=== PATIENT | female | born 1965 | race Caucasian/White ===

== ENCOUNTER 2025-08-25 08:54 | Outpatient (AMB) | payer MEDICARE, MEDICAID, SELFPAY ==
[2025-08-25 08:59] VITALS: BMI 29.0
--- NOTE | 2025-08-25 08:59 | A.PHYSOV_ITS ---
Vital Signs 08/25/25 08:59 Height 5 ft 7 in Weight 185 lb BMI 29.0 Intake Visit Reasons: 3M FUV Intake Note: Patient is a 59 year old female in office today for her 3 month follow up. Today we may consider ordering another injection if needed. Allergies codeine Allergy (Unknown, Verified 08/25/25 08:58) Unknown tramadol Allergy (Unknown, Verified 08/25/25 08:58) Unknown HPI Comments Details: History of Present Illness The patient is a 59-year-old female presenting with left-sided mid thoracic pain. She previously received a left transforaminal injection on June 01, 2025, which provided 80% pain relief by the follow-up visit on June 24, 2025. The patient occasionally uses Percocet for severe pain and has been taking cyclobenzaprine. The patient also reports a history of fibromyalgia, which she describes as generalized pain affecting her entire body. She has tried various medications, including Cymbalta, Lyrica, and gabapentin, but did not continue them long enough to assess their full efficacy. Currently, she is on sertraline and has been prescribed Celebrex by her primary care physician, although she feels it is not effective. The patient experiences morning stiffness, which she attributes to a combination of fibromyalgia and arthritis. She reports that the stiffness improves as the day progresses. I reviewed our previous office notes and also her primary care notes. Pain Description - Onset and Timing: Persistent dull pain in the left mid thoracic region, sometimes becoming relentless. - Quality and Character: Described as dull and persistent, with episodes of increased severity. - Location: Left mid thoracic region. - Exacerbating Factors: Morning stiffness, possibly due to fibromyalgia and arthritis. - Relieving Factors: Previous transforaminal injection provided significant relief. Results - Imaging: Thoracic spine MRI dated January 19, 2023, showed tiny disc protrusions at T1-T3 and T3-T4 levels without neurofibromyal compromise. [facility] Medical History (Updated 08/25/25 @ 09:25 by Tahir Leon DO) Thoracic spine pain Polyarthritis Chronic pain syndrome Fibromyalgia Surgical History History of tubal ligation (Unknown) History of hip replacement (Unknown) History of hernia repair (Unknown) History of cholecystectomy (Unknown) Social History Household Members: Spouse Alcohol intake: current Alcohol intake frequency: holidays/special occasions only Patient Tobacco Use Status: Never used Tobacco Current occupational status: retired Review of Systems Narrative Review of Systems - Musculoskeletal: Reports persistent dull pain in the left mid thoracic region, morning stiffness. - Neurological: Denies any new neurological symptoms. - General: Reports generalized pain due to fibromyalgia. Denies change in bowel bladder habits, denies fever or chills, denies uncontrolled depression or suicidal ideation Physical Exam Exam Exam: Physical Exam Patient appears to be in no acute distress, appropriately conversant and oriented. She was able to ambulate without antalgia. She was able to perform heel walk and toe walk with support for balance. Pain with palpation over thoracic paraspinal muscles on the left side at about T6 through T8 levels. Pain is aggravated by flexion and extension. Patient demonstrated no upper motor neuron signs. Neurological examination was nonfocal. Vital Signs: BMI result Body Mass Index 29.0 Assessment & Plan Assessment & Plan (1) Fibromyalgia: Code(s): M79.7 - Fibromyalgia Category: Medical (2) Chronic pain syndrome: Code(s): G89.4 - Chronic pain syndrome Category: Medical (3) Polyarthritis: Code(s): M13.0 - Polyarthritis, unspecified Category: Medical (4) Thoracic spine pain: Code(s): M54.6 - Pain in thoracic spine Category: Medical (5) Fibromyalgia: Code(s): M79.7 - Fibromyalgia Category: Medical Plan Pain Management - Affect: Pain impacts daily activities, causing morning stiffness and difficulty in movement. - Analgesia: Uses Percocet occasionally for severe pain; previously received transforaminal injection with 80% relief. - Adverse Effects: Reports Celebrex is ineffective and causes stomach discomfort. - Activities of Daily Living: Morning stiffness affects mobility, but improves throughout the day. - Aberrant Drug Related Behaviors: No evidence of misuse; patient uses medication as needed. Plan Patient was informed and verbally consented to the use of an ambient scribe for clinic note documentation during this visit. 1. Left-Sided Mid Thoracic Pain The patient will continue with pain management strategies, including the use of Percocet as needed for severe pain. A follow-up appointment is scheduled in one month to assess the effectiveness of the current pain management plan. 2. Fibromyalgia The patient will start pregabalin at 75 mg twice daily, with a follow-up in one month to evaluate tolerance and effectiveness. The patient is advised to discontinue Celebrex due to lack of efficacy and discuss this with her primary care physician. A refill of oxycodone is provided for breakthrough pain management. Discussion Notes I discussed with the patient the management of her fibromyalgia, including starting pregabalin at 75 mg twice daily and discontinuing Celebrex due to its ineffectiveness. We also talked about the importance of a follow-up in one month to evaluate the effectiveness of the new medication regimen. The patient was informed about the refill of oxycodone for breakthrough pain and the possibility of future injections if needed. Patient Instructions - Start pregabalin 75 mg twice daily. - Discontinue Celebrex and discuss with your primary care physician. - Use Percocet as needed for severe pain. - Schedule a follow-up appointment in one month. - Consider future injections if pain persists. Medications: New oxycodone-acetaminophen 5-325 mg 1 tab PO QID PRN 28 tabs 0RF pain G89.4 - Chronic pain syndrome, M13.0 - Polyarthritis, unspecified, M54.6 - Pain in thoracic spine, M79.7 - Fibromyalgia pregabalin 75 mg PO BID 60 caps 0RF fibromyalgia M79.7 - Fibromyalgia Coding Level of Care Code Tele Est Pt Level 4 (64806) Complex EM visit Add On G2211 Diagnoses Fibromyalgia M79.7 Chronic pain syndrome G89.4 Polyarthritis M13.0 Thoracic spine pain M54.6
--- OUTSIDE RECORDS SUMMARY | 2025-08-25 18:25 | XMS_ITS | Encounter Summary ---
Author Organization [facility] Address [address] [place] [address] Care Team Providers Care Corporate Treasury Analyst Name Role Phone Jodie Yip MD Primary Care Provider + [phone] Encounter Details Date Type Department Care Team (Late Contact Info) Description 08/20/2024 Lab Requisition [facility] [address] [facility] [place] [id number] James Walters PA [address] [phone] Benign essential microscopic hematuria Social History Tobacco Use Types Packs/Day Years Used Date Smoking Tobacco: Never Smokeless Tobacco: Never Alcohol Use Standard Drinks/Week Comments Yes 0 (1 standard drink = 0.6 oz pur e alcohol) Comments Unknown Sex and Gender Information Value Date Recorded Sex Assigned at Female 11/04/2024 8:29 AM EST Legal Sex Female 12:37 PM EST Gender Identity Female 11/04/2024 8:29 AM EST Sexual Orientation Straight 11/04/2024 8: 29 AM EST documented as of this encounter Plan of Treatment Upcoming Encounters Date Type Department Care Team (Late Contact Info) Description 09/07/2025 9:30 AM EST Office Visit Bariatric Surgery - [place] [address] [facility] [address] [place] [phone] Shana Campbell MD [address] [place] [phone] documented as of this encounter Procedures Procedure Name Priority Date/Time Associated Diagnosis Comments AP OUTSIDE CONSULT Routine 08/15/2024 12 :00 AM EST Benign essential microscopic hematuria documented in this encounter Results * Anatomic pathology outside consult (08/15/2024 12:00 AM EST) Final Diagnosis Urine, Voided ([id number]): Negative for high grade urothelial carcinoma. 09/03/2024 3:55 PM EST [facility] Gross Description A. Urine, Voided, : [id number] Received 1 TP (CYTO) with Reflex Fish if Atypical/Susp 09/03/2024 3:55 PM EST [facility] Disclaimer Unless otherwise specified, all tissue is 10% NB formalin fixed and paraffin embedded. 09/03/2024 3:55 PM EST [facility] Tissue Urine specimen from urethra / Unknown 08/15/2024 08/20/2024 11:04 AM EST us [facility] ORDERAB LES Final Result [facility] [address] [place] [address], documented in this encounter Visit Diagnoses Diagnosis Benign essential microscopic hematuria documented in this encounter Care Teams Corporate Treasury Analyst Relationship Specialty Start Date End Date Jodie Yip MD [address] [place] [id number] PCP - General Internal Medicine 11/04/24 documented as of this encounter
--- OUTSIDE RECORDS SUMMARY | 2025-08-25 18:25 | XMS_ITS | Clinical Summary ---
Author Organization [address] Address [address] [place] [address] Phone Care Team Providers Care Security Inspector Name Role Phone Jodie Yip MD Primary Care Provider + [phone] Allergies Active Allergy Reactions Criticality Noted Date Comments Codeine Nausea And Vomiting 07/11/2005 codeine causes abdominal pain ultram causes nauea & vomiting Tramadol Nausea And Vomiting 01/12/2021 Tramadol Hcl Nausea And Vomiting 09/07/2009 Medications famotidine (PEPCID) 40 mg tablet Take 1 tablet (40 mg total) by mouth 1 (one) time each day. 3 Active aspirin 81 mg EC tablet Take by mouth. Activ e meclizine (ANTIVERT) 25 mg tablet Take 1 Tablet by mouth 3 times daily as needed for Other (dizziness). 3 Active amLODIPine-benazep ril (LOTREL) 5-10 mg per capsule Take 1 capsule by mouth 1 (one) time each day. 3 Active ondansetron ODT (ZOFRAN-ODT) 4 mg disintegrating tablet Take 1 Tablet by mouth every 12 hours as needed for Nausea. 3 Active atorvastatin (LIPITOR) 40 mg tablet Take 1 tablet (40 mg total) by mouth 1 (one) time each day. 3 Active albuterol HFA (PROAIR HFA ; PROVENTIL HFA ; VENTOLIN HFA) 90 mcg/actuation inhaler Inhale 2 Puffs into the lungs every 4 hours as needed for Cough, Wheezing or Shortness of Breath. 3 Active cyclobenzaprine (FLEXERIL) 10 mg tablet Take 1 Tablet by mouth 3 times daily as needed for Muscle spasms (fibromyalgia) . 3 Active cycloSPORINE (Restasis MultiDose) 0.05 % drops Administer 1 drop into both eyes 2 (two) times a day. 3 Active sertraline (ZOLOFT) 100 mg tablet 2 po qd 1 Active LORazepam (ATIVAN) 0.5 mg tablet 1/2-1 po bid prn anxiety/insomn ia 1 Active hydrOXYzine HCL (ATARAX) 25 mg tablet Take 1-3 Tablets by mouth at bedtime as needed (insomnia). 1 Active loratadine (CLARITIN) 10 mg tablet Take 1 tablet (10 mg total) by mouth 1 (one) time each day. 0 Active acetaminophen/caff eine (EXCEDRIN TENSION HEADACHE ORAL) Take 1 Tab by mouth daily as needed. Active levothyroxine (SYNTHROID, LEVOTHROID) 100 mcg tablet Take 1 tablet (100 mcg total) by mouth 1 (one) time each day before breakfast. Active pantoprazole (PROTONIX) 40 mg EC tablet Take 1 tablet (40 mg total) by mouth 1 (one) time each day before breakfast. Do not crush, chew, or split. Active Active Problems Problem Noted Date Diagnosed Date Known medical problems 09/24/2024 Overview (09/24/2024): LAP BAND 07/01/07 + hiatal hernia repair; UGI 05/05/15 shows unchanged gastric pouch proximal to band with gastric cardia above diaphragm, & reflux Kidney stones, calcium oxalate 11/17/2022 Overview (09/24/2024): PVU Hyperlipidemia 09/12/2021 Overview (09/24/2024): Last Assessment & Plan: Labs are ordered to be done today. Discussed diet and exercise. We will continue to monitor. Primary hypertension 08/09/2021 Overview (09/24/2024): Last Assessment & Plan: Patient was last seen on August 09, 2021 and started on amlodipine-benazepril 5-10 mg daily. Here today and blood pressures under good control. Patient is tolerating medication well. Labs are ordered to be done today. Will continue to monitor blood pressures in office at next visit. Discussed dietary strategies to help control his blood pressure. Encouraged low-fat, lean protein, high-fiber, low-cholesterol, low carbohydrate diet. Regular exercise and weight loss also encouraged to help with blood pressure control. Recheck in 3 months. Return sooner if needed. Hyperthyroidism 02/09/2021 Overview (09/24/2024): Last Assessment & Plan: Patient currently on methimazole 15 mg daily. She has been tolerating the medicine well. Occasionally feeling some palpitations but otherwise feeling stable. Since getting her thyroid under better control her fibromyalgia is feeling better. Last TSH was 1.85 on July 25, 2021. We will continue to monitor. Vitamin D deficiency 11/26/2019 Overview (09/24/2024): Last Assessment & Plan: Patient finished her course of vitamin D 50,000 units weekly that was started on August 09, 2021. We will get lab work today. If continued decreased can consider either another course for 8 more weeks of the vitamin D 50,000 units or can do 2000 units daily depending on level. We will continue to monitor and adjust therapy as indicated. Adjustment disorder with mixed anxiety and depre ssed mood 10/22/2018 Mild episode of recurrent ma charan depressive disorder ([facility] V24) 10/22/2018 Nausea 12/05/2017 Inflammatory arthritis 12/05/2017 Overview (09/24/2024): 05/2017 - 11/2017 - methotrexate (hair loss & ineffective) Chronic headache disorder 04/28/2015 Overview (09/24/2024): Onset as teenager. Ureteral stone 01/05/2012 Rotator cuff tendinitis 11/16/2010 Overview (09/24/2024): Left; April 2010 mri shows AC DJD as well Osteoarthritis of hip 10/05/2010 Overview (09/24/2024): L>R with protrusio deformity Thoracic back pain 03/24/2010 ADD (attention deficit disorder) 02/23/2010 Fibromyalgia 03/21/2007 Overview (09/24/2024): LYNDA 1:80 - speckled. Anti DNA negative. Hand numbness but NCT 12/15 normal. IMO update Asthma 08/29/2006 Esophageal reflux 08/29/2006 Overview (09/24/2024): EGD 02/20/2012: grade B esophagitis on PPI rx. Encounters Date Type Department Care Team Description 08/12/2025 11:30 AM EST Office Visit Bariatric Surgery [address] [address] Shana Campbell MD Encounter for adjustment of gastric lap band (Primary Dx); Overweight (BMI 25.0-29.9) 07/20/2025 9:45 AM EDT Office Visit Bariatric [address] [address] Shana Campbell MD Encounter for adjustment of gastric lap band (Primary Dx); Overweight (BMI 25.0-29.9); Hyperthyroidism; Weight gain from Last 3 Months Immunizations Immunization Administration Dates Next Due Hepatitis B (Ljtehty-B-Arfam , Recombivax HB-Adult) 19yo and older 01/16/2018,07/18/2017,06/18/2017 Influenza Quadravalent, MDCK , 0.5ml, with preservative (Flucelvax) 6mo and older 06/25/2020,07/15/2019,07/10/2018,07/05 Influenza trivalent, 0.5mL, preservative free (Fluarix; FluLaval; Fluzone) ages 6mo and older (Afluria) 3 years and older 07/03/2016,08/01/2013,07/30/2012,07/07,06/28/2010,07/05/2009,07/28/2008 ,07/31/2007 Influenza, Unspecified 07/17/2022,06/29/2021,05/2019 Moderna SARS-CoV-2 COVID-19, mRNA, LNP-S, preservative free 09/07/2021 Pfizer SARS-CoV-2 COVID-19, mRNA, LNP-S, preservative free 07/17/2022 Pneumococcal polysaccharide 23 valent (Pneumovax 23) 2yo and older 06/18/2017 Td Tetanus diptheria (Tdvax) 7yo and older 07/21/2022 Td, Unspecified 07/14/2003 Tdap Tetanus diptheria acell ular pertussis (Boostrix; Adacel) 7yo and older 03/15/2012 Surgical History Surgery Date Site/Laterality Comments LAPAROSCOPIC GASTRIC BANDING 07/01/20 07 PROCEDURE: LAP ADJUSTABLE GASTRIC BAND; COMMENT: plus hiatal hernia repair APPENDECTOMY PROCEDURE: HISTORICAL APPENDECTOMY CHOLECYSTECTOMY PROCEDURE: HISTORICAL CHOLECYSTECTOMY ESOPHAGOGASTRODUODENOSCOPY 02/20/20 PROCEDURE: NV ESOPHAGOGASTRODUODENOSCOPY TRANSORAL DIAGNOSTIC; COMMENT: grade B reflux esophagitis. OTHER SURGICAL HISTORY , Bilateral PROCEDURE: GLOBAL ESWL KIDNEY LITHOTRIPSY 01/11/20 12 Left PROCEDURE: HISTORICAL LITHOTRIPSY; COMMENT: ureteroscopy,laser,stent UPPER GASTROINTESTINAL ENDOSCOPY 07/24/20 PROCEDURE: NV UPPER GI ENDOSCOPY PERFORMED; COMMENT: No esophagitis on pantoprazole 40 bid. COLONOSCOPY 09/11/20 16 PROCEDURE: HISTORICAL COLONOSCOPY; COMMENT: Normal screening examination. HIP ARTHROPLASTY 03/2012 Left PROCEDURE: HISTORICAL HIP REPLACEMENT; COMMENT: Dr Cleveland Wan OTHER SURGICAL HISTORY 02/23/20 PROCEDURE: ANESTH, UPPER GI ENDOSCOPIC PROCS; COMMENT: muslu -esophageal dilation, food in the esophagus Medical History Medical History Date Comments Lumbago 07/11/2005 DX:Lumbago Esophageal reflux 08/29/2006 DX:Esophageal reflux Allergic rhinitis, cause unspecified DX:Allergic rhinitis, cause unspecified Deviated nasal septum 02/06/2008 DX:Deviate d nasal septum Chronic maxillary sinusitis 02/06/2008 DX:C hronic maxillary sinusitis Bariatric surgery status 07/09/2007 DX:[facility] atric surgery status Depressive disorder, not els ewhere classified 03/21/2007 DX:Depressive disorder, not elsewhere classified Myalgia and myositis, unspecified 03/21/2007 DX:Myalgia and myositis, unspecified Primary localized osteoarthr osis, pelvic region and thigh 03/21/2007 DX:Primary localized osteoar throsis, pelvic region and thigh; COMMENT: needs left THR per Dr. Pereira Unspecified asthma(493.90) 08/29/2006 DX:Un specified asthma(493.90) Rotator cuff tendinitis 11/16/2010 DX:Rotat or cuff tendinitis Ureteral stone 01/05/2012 DX:Ureteral ston e Chronic headache disorder 04/28/2015 DX:Chr onic headache disorder; COMMENT: Onset as teenager. Family History Medical History Relation Name Comments Breast cancer Maternal Grandmother 40s Diabetes Maternal Grandmother 40s Diabetes Mother Other: trigger finger Mother Thyroid disease Mother Diabetes Paternal Grandmother Arthritis Uncle maternal rheumatoid Colon cancer Neg Hx Ovarian cancer Neg Hx Relation Name Status Comments Brother Alive James, 2yrs you nger, Diabetic Father Alive CHF, lung disea se (scale assembly set up worker) Maternal Grandmother 40s Mother Alive Diabetes, CAD Paternal Grandmother Uncle maternal Alive Social History Tobacco Use Types Packs/Day Years [...] Orientation Straight 11/04/2024 8: 29 AM EST Obstetrics History Last Filed Vital Signs Vital Sign Reading Time Taken Comments Blood Pressure 158/96 08/12/2025 11:29 AM EST Pt is nervous Pulse 79 08/12/2025 11:29 AM EST Temperature 36.6 C (97.9 F) 08/12/2025 11:29 AM EST Respiratory Rate 18 11/04/2024 10:5 0 AM EST Oxygen Saturation 98% 11/04/2024 11: 23 AM EST Inhaled Oxygen Concentration - - Weight 84.8 kg (187 lb) 08/12/2025 11:2 9 AM EST Height 170.2 cm (5' 7 ) 08/12/2025 11:2 9 AM EST Body Mass Index 29.29 08/12/2025 11:29 AM EST Plan of Treatment Upcoming Encounters Date Type Department Care Team (Late st Contact Info) Description 09/07/2025 9:30 AM EST Office Visit Bariatric Surgery - [place] [address] [place] [address] Shana Campbell MD [facility] [place] [address] Health Maintenance Due Date Last Done Comments RSV Immunization Adult Patients (1 - Risk 50-74 years 1-dose series) 2015 Pneumococcal Vaccine: 50+ Years (2 of 2 - PCV) 06/18/2018 06/18/2017 HIV Screening 09/16/2022 Medicare Annual Wellness Visit 09/16/2022 Social Influencers of Health Screening 09/16/2022 Hypertension/CHF/CAD Annual BMP Blood Test 12/22/2023 12/21/2022, 01/17/2021 Depression Screening 10/08/2024 COVID-19 Vaccine ( season) 2025 07/11/2024, 07/17/2022, 09/07/2021, Additional history exists Influenza Vaccine (#1) 2025 , 07/17/2022, 06/29/2021, Additional history exists Breast Cancer Screening 08/08/2025 08/08/20 23, 08/03/2022, 07/11/2019, Additional history exists Colorectal Cancer Screening: Colonoscopy 09/11/2026 09/11/2016 Cholesterol Screening (Lipid Panel) 12/12/2026 12/12/2021 Cervical Cancer Screening: HPV 10/16/2027 10/16/2022 DTaP,Tdap,and Td Vaccines (4 - Td or Tdap) 07/21/2032 07/21/2022, 03/15/2012, 07/14/2003 Hepatitis C Screening Completed 06/05/2017 Hepatitis B Vaccines Completed 01/16/2018, 07/18/2017, 06/18/2017 Zoster Vaccines Completed 07/11/2024, 01/31/2024 HIB Vaccines Aged Out No longer eligi ble based on patient's age to complete this topic HPV Vaccines Aged Out No longer eligi ble based on patient's age to complete this topic Hepatitis A Vaccines Aged Out No long er eligible based on patient's age to complete this topic IPV Vaccines Aged Out No longer eligi ble based on patient's age to complete this topic MMR Vaccines Aged Out No longer eligi ble based on patient's age to complete this topic Meningococcal ACWY Vaccine Aged Out N o longer eligible based on patient's age to complete this topic Meningococcal B Vaccine Aged Out No l onger eligible based on patient's age to complete this topic RSV Immunization Patients Under 20 months Aged Out No longer eligible based on patient's age to complete this topic Varicella Vaccines Aged Out No longer eligible based on patient's age to complete this topic Procedures Procedure Name Priority Date/Time Associated Diagnosis Comments SCREENING MAMMOGRAPHY BI 2-VIEW BREAST INC CAD Routine 08/08/2023 6:10 PM EDT Encounter for screening mammogram for malignant neoplasm of breast ANNUAL BMP BLOOD TEST Routine 12/21/2022 HPV Routine 10/16/2022 LIPID PANEL Routine 12/12/2021 HEPATITIS C SCREENING Routine 06/05/2017 COLONOSCOPY Routine 09/11/2016 from Last 3 Months or Most Recently Relevant to Health Maintenance Results * SCREENING MAMMOGRAPHY BI 2-VIEW BREAST INC CAD (08/08/2023 6:10 PM EDT) Anatomical Region Laterality Modality Radiographic Teri ging 08/03/2022 5:51 PM EDT Narrative 08/09/2023 12:05 PM EDT This is a summary report. The complete report is available in the patient's medical record. If you cannot access the medical record, please contact the sending organization for a detailed fax or copy. Full field digital screening tomosynthesis mammography, reviewed with CAD and compared to previous. The breasts are composed of fatty and fibroglandular tissue. No suspicious mass, architectural distortion or suspicious calcifications are identified. IMPRESSION: : No mammographic evidence of malignancy. BIRADS 1-Negative; N. 5 year breast cancer risk assessment 1.0 % Lifetime breast cancer risk assessment 6.5 % Breast cancer risk category Low (<15%) Procedure Note Shefali Avendano MD - 11/13/2023 This is a summary report. The complete report is available in thepatient's medical record. If you cannot access the medical record, pleasecontact the sending organization for a detailed fax or copy. Full field digital screening tomosynthesis mammography, reviewed with CADand compared to previous. The breasts are composed of fatty andfibroglandular tissue. No suspicious mass, architectural distortion orsuspicious calcifications are identified. IMPRESSION: : No mammographic evidence of malignancy. BIRADS 1-Negative; N. 5 year breast cancer risk assessment 1.0 % Lifetime breast cancer risk assessment 6.5 % Breast cancer risk category Low (<15%) Result [facility] Jodie Yip MD IMG XR PROCEDURES Final Resu lt * Annual BMP Blood Test (12/21/2022) [facility] Annual BMP Blood Test abstracted Result [facility] Provider [facility] MAINTENANCE Final Result * Cervical Cancer Screening: HPV (10/16/2022) [facility] Cervical Cancer Screening: HPV abstracted, negative Result [facility] Final Result * (ABNORMAL) Lipid panel (12/12/2021) [facility] LDL/HDL Ratio 4 0 - 4 Triglycerides 106 0 - 150 mg/dL Cholesterol 238(A) 0 - 200 mg/dL HDL 69 >=40 mg/dL LDL Cholesterol 148(A) 0 - 100 mg/dL Blood Venous blood specimen / Unknown Result [facility] Provider LAB BLOOD ORDERABLES Juliana l Result * Hepatitis C Screening (06/05/2017) [facility] Hepatitis C Screening abstracted Result [facility]INTENANCE Final Result * Colonoscopy (09/11/2016) [facility] Colonoscopy abstracted, no interpretation Anatomical Region Laterality Modality Other us Historical Provider HEALTH MAINTENANCE Final Result from Last 3 Months or Most Recently Relevant to Health Maintenance Insurance MEDICARE MEDICAID - [place] Care Teams Security Inspector Relationship Specialty Start Date End Date Jodie Yip MD [address] [place] [phone] PCP - General Internal Medicine 11/04/24
--- OUTSIDE RECORDS SUMMARY | 2025-08-25 18:25 | XMS_ITS ---
Author Name [facility] Organization Unknown Care Team Organization Name Specialty Phone Email Start Date End Da te [facility] YANY ANDERS Primary Care 06/14/2023 05/26/2024 [facility] Termed, PROVIDER Primary Care 02/12/202305/08 [facility] Jose Carlos Kramer Primary Care 08/15/20222023
--- OUTSIDE RECORDS SUMMARY | 2025-08-25 18:25 | XMS_ITS | Clinical Summary ---
Author Organization [facility] Address [address] [address] Phone Care Team Providers Care Online [employer] And Fitness Coach Name Role Phone Shefali Dutton Primary Care Provider [phone] Allergies Active Allergy Reactions Criticality Noted Date Comments Codeine Nausea and/or Vomiting,Pain Low 01/13/20 21 Tramadol Nausea and/or Vomiting 01/12/2021 Medications sertraline (ZOLOFT) 100 MG tablet Take 200 mg by mouth daily. Active LORazepam (ATIVAN) 0.5 MG tablet Take by mouth. 1/2-1 tab po twice a day as needed for anxiety Active sucralfate (CARAFATE) 100 mg/mL suspension Take 1 g by mouth 4 (four) times a day. Active loratadine (CLARITIN) 10 mg tablet Take 10 mg by mouth daily. Active pantoprazole (PROTONIX) 40 MG tablet Take 40 mg by mouth daily. Active cyclobenzaprine (FLEXERIL) 10 MG tablet Take 10 mg by mouth 3 (three) times a day as needed. Active albuterol 90 mcg/actuation inhaler Inhale 2 puffs into the lungs every 4 (four) hours as needed. Active hydrOXYzine (ATARAX) 25 MG tablet Take by mouth. 1-3 tabs at bedtime as needed Active acetaminophen/c affeine (EXCEDRIN TENSION HEADACHE ORAL) Take by mouth. Active fluticasone propionate (FLOVENT HFA) 220 mcg/actuation inhaler Inhale 2 puffs into the lungs as needed. Active methIMAzole (TAPAZOLE) 10 MG tablet Take 10 mg by mouth daily. 06/13/2021 Active methIMAzole (TAPAZOLE) 5 MG tablet Take 5 mg by mouth daily. 06/15/2021 Active amLODIPine-maral zepril (LOTREL 5-10) 5-10 mg per capsule TOME JOSE C PSULA TODOS LOS D EN LA NOCHE 12/31/2021 Active atorvastatin (LIPITOR) 40 MG tablet Take 40 mg by mouth daily. 12/09/2021 Active celecoxib (CELEBREX) 100 MG capsule TAKE 1 CAPSULE BY MOUTH TWICE A DAY 60 capsule 2 04/20/2022 Active Active Problems Problem Noted Date Diagnosed Date Primary osteoarthritis of both hands 02/10/2021 Assessment & Plan (02/11/2021 4:26 PM EDT): Continue Celebrex 100 mg Take one pill PO BID with food for OA hip pain relief. Tylenol Arthritis for additional hip relief as needed Pain in both hands 01/13/2021 Assessment & Plan (01/13/2021 2:55 PM EDT): Cally has recently started Celebrex 100 mg PO BID with food. Continue current medication. Will get autoimmune labs for origin of hand pain. X-ray of hands. Vitamin D deficiency 01/13/2021 Assessment & Plan (02/11/2021 4:27 PM EDT): Patient on Vitamin D 43510 IU q week. She has one more week left on medication. Lab was normal. She will discuss maintenance dose with PCP:. Assessment & Plan (01/13/2021 2:54 PM EDT): Analy is on Vitamin D 85365 units a week. She has been taking for 3 weeks. Will get lab to check level. She is following with PCP for monitoring and therapy. Primary osteoarthritis of right hip 01/13/2021 Assessment & Plan (02/11/2021 4:26 PM EDT): Continue Celebrex 100 mg Take one pill PO BID with food for OA hip pain relief. Tylenol Arthritis for additional hip relief as needed. Assessment & Plan (01/13/2021 2:56 PM EDT): Continue Celebrex 100 mg Take one pill PO BID with food. Pain in both feet 01/13/2021 Assessment & Plan (02/11/2021 4:26 PM EDT): Continue Celebrex 100 mg Take one pill PO BID with food for OA hip pain relief. Tylenol Arthritis for additional hip relief as needed Assessment & Plan (01/13/2021 2:57 PM EDT): Patient will continue Celebrex 100 mg Take one pill PO BID with food for foot pain relief. Family History Medical History Relation Comments Breast cancer Maternal Grandmother Diabetes Maternal Grandmother Diabetes Mother Diabetes Paternal Grandmother Rheumatoid arthritis Unspecified Relation Status Comments Maternal Grandmother Mother Paternal Grandmother Unspecified Social History Tobacco Use Types Packs/Day Years Used Date Smoking Tobacco: Never Smokeless Tobacco: Never Education Answer Date Recorded Are you interested in more education? Not on charo e 02/02/2023 Are you concerned about learning? Not on file 02/02/2023 No 02/02/2023 No 02/02/2023 Digital Access Answer Date Recorded No 03/06/2023 No 03/06/2023 Reliable internet access at home? Not on file 03/06/2023 Device with a working camera? Not on file Comments Unknown Sex and Gender Information Value Date Recorded Sex Assigned at Not on file Legal Sex Female 1:53 PM EDT Gender Identity Not on file Sexual Orientation Not on file Last Filed Vital Signs Vital Sign Reading Time Taken Comments Blood Pressure 110/66 01/25/2022 8:24 AM EDT Pulse 78 01/25/2022 8:24 AM EDT Temperature - - Respiratory Rate 16 01/25/2022 8:24 AM EDT Oxygen Saturation 98% 01/25/2022 8:24 AM EDT Inhaled Oxygen Concentration - - Weight 63 kg (139 lb) 01/25/2022 8:24 AM EDT Height 170.2 cm (5' 7.01 ) 01/25/2022 8:24 AM ED T Body Mass Index 21.77 01/25/2022 8:24 AM EDT Plan of Treatment Health Maintenance Due Date Last Done Comments LIPID PANEL 1965 DEPRESSION SCREENING 1977 HEPATITIS C SCREENING 1983 HIV ONE-TIME SCREENING (18-65 YEARS) 1983 PAP SMEAR 1986 MAMMOGRAM 2005 COLOGUARD 2010 COLONOSCOPY 2010 COLORECTAL CANCER SCREENING 2010 FIT TEST 2010 FOBT 2010 SIGMOIDOSCOPY 2010 VIRTUAL COLONOSCOPY 2010 ZOSTER VACCINES (1 of 2) 2015 PNEUMOCOCCAL VACCINES (50+ years) (2 of 2 - PCV) 06/18/2018 06/18/2017 CREATININE LEVEL 01/17/2022 01/17/2021 POTASSIUM LEVEL 01/17/2022 01/17/2021 Adult Td,Tdap Booster 03/15/2022 03/15/2012, 003 INFLUENZA VACCINE (#1) 2025 , 06/25/2020, 07/15/2019, Additional history exists COVID-19 VACCINE (4 - 2024- season) 2025 09/07/2021, 01/05/2021, 12/08/2020 RSV VACCINE (1 - 1-dose 75+ series) 2040 SMOKING STATUS SCREENING (Once After 26 Yrs) Completed 07/04/2021 HEPATITIS A VACCINES Aged Out No long er eligible based on patient's age to complete this topic HIB VACCINES Aged Out No longer eligi ble based on patient's age to complete this topic IPV VACCINES Aged Out No longer eligi ble based on patient's age to complete this topic MENINGOCOCCAL VACCINES (ACWY) Aged Out No longer eligible based on patient's age to complete this topic MENINGOCOCCAL VACCINES (B) Aged Out N o longer eligible based on patient's age to complete this topic Medical Devices Not on file Procedures Procedure Name Priority Date/Time Associated Diagnosis Comments COMPREHENSIVE METABOLIC PANEL (CMP) Routine 01/17/2021 10:45 AM EDT Pain in both hands Vitamin D deficiency Primary osteoarthritis of right hip from Last 3 Months or Most Recently Relevant to Health Maintenance Results * Comprehensive metabolic panel (01/17/2021 10:45 AM EDT) SODIUM 143 133 - 146 mmol/L [facility] POTASSIUM 4.4 3.3 - 5.1 mmol/L [facility] CHLORIDE 106 96 - 108 mmol/L [facility] CO2 28 21 - 35 mmol/L [facility] BUN 14 6 - 19 mg/dL [facility] CREATININE 0.60 0.5 - 1.5 mg/dL [facility] GLUCOSE 99 70 - 99 mg/dL [facility] ALBUMIN 4.4 3.9 - 4.8 g/dL [facility] TOTAL PROTEIN 7.5 6.5 - 8.0 g/dL [facility] CALCIUM 9.4 8.4 - 10.3 mg/dL [facility] ALKALINE PHOSPHATASE 78 39 - 117 U/L [facility] TOTAL BILIRUBIN 0.3 0.0 - 1.2 mg/dL [facility] AST 19 0 - 37 U/L [facility] ALT 19 0 - 40 U/L [facility] GLOBULIN 3.1 1 - 4.8 g/dL [facility] EGFR 103 >59 mL/min/1.7 3m2 [facility] Comment:Estimated glomerular filtration rate calculated using the CKD-EPI equation. ANION GAP 13 10 - 20 mmol/L [facility] Blood 01/17/2021 10:4 5 AM EDT 01/17/2021 10:53 AM EDT Alex [facility]O LAB BLOOD BKR ORDERABLE S Final Result [address] [id number] from Last 3 Months or Most Recently Relevant to Health Maintenance Insurance MEDICARE PART A & B [employer] NET PARTIAL MEDEX SUPPLEMENT MEDICARE PART A & B [employer] NET PARTIAL [employer] MEDEX SUPPLEMENT MEDICARE PART A & B [facility] NET PARTIAL [employer] MEDEX SUPPLEMENT MEDICARE PART A & B [facility] PARTIAL MEDEX SUPPLEMENT MEDICARE PART A & B [employer] NET PARTIAL MEDEX SUPPLEMENT MEDICARE PART A & B [employer] NET PARTIAL [employer] CROSS MEDEX SUPPLEMENT MEDICARE PART A & B [facility] NET PARTIAL [employer] MEDEX SUPPLEMENT MEDICARE PART A & B Member Subscriber Plan / Payer (Ef fective 2012-Present) Name:Estee Ledbetter Member ID:[id number] Relation to Subscriber:Self Name:Estee Ledbetter Subscriber ID:[id number] Payer ID:[id number] Group ID:Not on file Type:Medicare Address: [facility] [employer] [facility] [address] [address] [facility] PARTIAL MEDEX SUPPLEMENT MEDICARE PART A & B HEALTH SAFETY NET PARTIAL MEDEX SUPPLEMENT Care Teams Online Health And Fitness Coach Relationship Specialty Start Date End Date Shefali Dutton PA PCP - General Unknown Provider Specialty 01/06/21 Additional Source Comments The information contained in this document represents components of the legal health record. It is not the complete legal health record.[facility]
== END 2025-08-25 09:23 | disposition home or self-care (01) ==
PROVIDERS: PCP Internal Medicine; Visit Provider Physical Medicine & Rehabilitation
DX: M79.7 Fibromyalgia (principal); G89.4 Chronic pain syndrome; M13.0 Polyarthritis, unspecified; M54.6 Pain in thoracic spine
CPT/HCPCS: 99214; G2211

== ENCOUNTER → 2025-08-25 08:54 | Outpatient (BNVA) | payer MEDICARE, MEDICAID, SELFPAY | PROVIDERS: PCP Internal Medicine; Visit Provider Physical Medicine & Rehabilitation | DX: M54.6 Pain in thoracic spine (principal); M79.7 Fibromyalgia; G89.29 Other chronic pain; M13.0 Polyarthritis, unspecified | CPT/HCPCS: 99212 ==

== ENCOUNTER 2025-09-24 09:05 | Outpatient (AMB) | payer MEDICARE, MEDICAID, SELFPAY ==
[2025-09-24 09:13] VITALS: BMI 29.0
--- NOTE | 2025-09-24 09:13 | A.PHYSOV ---
Vital Signs 09/24/25 09:13 Height 5 ft 7 in Weight 185 lb BMI 29.0 Intake Visit Reasons: 1M followup Intake Note: Patient is a 59 year old female in office today for a 1 month follow up visit. Allergies codeine Allergy (Unknown, Verified 09/24/25 09:12) Unknown tramadol Allergy (Unknown, Verified 09/24/25 09:12) Unknown HPI Comments Details: History of Present Illness The patient is a 59-year-old female presenting with left-sided mid thoracic pain. She previously received a left transforaminal injection on June 01, 2025, which provided 80% pain relief by the follow-up visit on June 24, 2025. The patient occasionally uses Percocet for severe pain and has been taking cyclobenzaprine. The patient also reports a history of fibromyalgia, which she describes as generalized pain affecting her entire body. She has tried various medications, including Cymbalta, Lyrica, and gabapentin, but did not continue them long enough to assess their full efficacy. Currently, she is on sertraline and has been prescribed Celebrex by her primary care physician, although she feels it is not effective. The patient experiences morning stiffness, which she attributes to a combination of fibromyalgia and arthritis. She reports that the stiffness improves as the day progresses. During her last appointment she was started on pregabalin 75 mg twice a day. She reports no side effects. She thinks that she is feeling better on the medication. Pain continues to be significant at times. Pain Description - Onset and Timing: Persistent dull pain in the left mid thoracic region, sometimes becoming relentless. - Quality and Character: Described as dull and persistent, with episodes of increased severity. - Location: Left mid thoracic region. - Exacerbating Factors: Morning stiffness, possibly due to fibromyalgia and arthritis. - Relieving Factors: Previous transforaminal injection provided significant relief. Results - Imaging: Thoracic spine MRI dated January 19, 2023, showed tiny disc protrusions at T1-T3 and T3-T4 levels without neurofibromyal compromise. REPLACED BY [facility] Medical History Thoracic spine pain Polyarthritis Chronic pain syndrome Fibromyalgia Surgical History History of tubal ligation (Unknown) History of hip replacement (Unknown) History of hernia repair (Unknown) History of cholecystectomy (Unknown) Social History Household Members: Spouse Alcohol intake: current Alcohol intake frequency: holidays/special occasions only Patient Tobacco Use Status: Never used Tobacco Current occupational status: retired Review of Systems Narrative Review of Systems - Musculoskeletal: Reports persistent dull pain in the left mid thoracic region, morning stiffness. - Neurological: Denies any new neurological symptoms. - General: Reports generalized pain due to fibromyalgia. Denies change in bowel bladder habits, denies fever or chills, denies uncontrolled depression or suicidal ideation Physical Exam Exam Exam: Physical Exam Patient appears to be in no acute distress, appropriately conversant and oriented. She was able to ambulate without antalgia. She was able to perform heel walk and toe walk with support for balance. Pain with palpation over thoracic paraspinal muscles on the left side at about T6 through T8 levels. Pain is aggravated by flexion and extension. Patient demonstrated no upper motor neuron signs. Neurological examination was nonfocal. Vital Signs: BMI result Body Mass Index 29.0 Assessment & Plan Assessment & Plan (1) Fibromyalgia: Code(s): M79.7 - Fibromyalgia Category: Medical (2) Chronic pain syndrome: Code(s): G89.4 - Chronic pain syndrome Category: Medical (3) Polyarthritis: Code(s): M13.0 - Polyarthritis, unspecified Category: Medical (4) Thoracic spine pain: Code(s): M54.6 - Pain in thoracic spine Category: Medical Plan Pain Management - Affect: Pain impacts daily activities, causing morning stiffness and difficulty in movement. - Analgesia: Uses Percocet occasionally for severe pain; previously received transforaminal injection with 80% relief. - Activities of Daily Living: Morning stiffness affects mobility, but improves throughout the day. - Aberrant Drug Related Behaviors: No evidence of misuse; patient uses medication as needed. Plan Patient was informed and verbally consented to the use of an ambient scribe for clinic note documentation during this visit. 1. Left-Sided Mid Thoracic Pain The patient will continue with pain management strategies, including the use of Percocet as needed for severe pain. A follow-up appointment is scheduled in one month to assess the effectiveness of the current pain management plan. 2. Fibromyalgia I will increase pregabalin to 150 mg twice a day. I suggested to take 75 mg in the morning for as long as she still has 75 mg capsules available and take 150 mg at bedtime. When she finished 75 mg capsules, she will increase pregabalin to 150 mg twice a day. Follow up in 1 month. Patient Instructions - Start pregabalin 150 mg at bedtime while keeping 75 mg in the morning for a week. Eventually increase 150 mg twice a day - Use Percocet as needed for severe pain. - Schedule a follow-up appointment in one month. - Consider future injections if pain persists. Coding Level of Care Code Est Pt Level 3 (97262) Add On Problem Visit Only Diagnoses Fibromyalgia M79.7 Chronic pain syndrome G89.4 Polyarthritis M13.0 Thoracic spine pain M54.6
== END 2025-09-24 09:31 | disposition home or self-care (01) ==
LOC: HO.HPHYS 09:05
PROVIDERS: PCP Internal Medicine; Visit Provider Physical Medicine & Rehabilitation
DX: M79.7 Fibromyalgia (principal); G89.4 Chronic pain syndrome; M13.0 Polyarthritis, unspecified; M54.6 Pain in thoracic spine
CPT/HCPCS: 99213; G2211

== ENCOUNTER → 2025-09-24 09:05 | Outpatient (BNVA) | payer MEDICARE, MEDICAID, SELFPAY | PROVIDERS: PCP Internal Medicine; Visit Provider Physical Medicine & Rehabilitation | DX: G89.4 Chronic pain syndrome (principal); M79.7 Fibromyalgia; M13.0 Polyarthritis, unspecified; M54.6 Pain in thoracic spine | CPT/HCPCS: 99212 ==